=== PATIENT | female | born 1995 | race Caucasian/White ===

== ENCOUNTER 2018-05-22 20:18 | Emergency (ER) | payer MEDICAID ==
[2018-05-22] MEDS ORDERED: Ondansetron HCl/PF 4 MG/2 ML Vial ONE (20:45)
[2018-05-22 20:58] LABS: #Lymphocytes 1.9 thou/uL (1.20-3.40); #Monocytes 0.7 thou/uL (0.11-0.59); #Neutrophils 14.7 thou/uL (1.40-6.50); %Basophils 0.3 % (0.0-1.0); %Eosinophils 0.1 % (0.0-10.0); %Lymphocytes 10.7 % (21.0-51.0); %Monocytes 3.8 % (0.0-10.0); %Neutrophils 85.1 % (42.0-75.0); Hemoglobin 12.7 g/dL (12.0-16.0); Mean Corpuscular HGB CONC 33.5 g/dL (32.0-36.0); Mean Corpuscular Hemoglobin 29.1 pg (27.0-31.0); Mean Platelet Volume 7.2 fL (7.4-10.4); Platelet Count 449 thou/uL (130-400); RBC Distribution Width 13.1 % (11.5-14.5); Red Blood Cell (RBC) Count 4.37 mill/uL (4.20-5.40); White Blood Cell (WBC) Count 17.2 thou/uL (4.8-10.8)
[2018-05-22 21:20] LABS: ALT (SGPT) 8 U/L (8-55); AST (SGOT) 13 U/L (5-34); Albumin 4.4 g/dL (3.5-5.0); Alkaline Phosphatase 72 U/L (40-150); Anion Gap 17 mmol/L (10-20); BUN (Urea Nitrogen) 5 mg/dL (7.0-18.7); Bilirubin, Total 0.2 mg/dL (0.2-1.2); Calc. Creatinine Clearance 0 mL/min (70-130); Calcium 10.4 mg/dL (7.8-10.44); Carbon Dioxide 19 mmol/L (22-29); Chloride 105 mmol/L (98-107); Estimated GFR-MDRD Greater than 90; Globulin 4.3 g/dL (2.4-3.5); Glucose 95 mg/dL (70-105); Potassium 3.7 mmol/L (3.5-5.1); Protein, Total 8.7 g/dL (6.0-8.3); Sodium 137 mmol/L (136-145)
[2018-05-22] MEDS ORDERED: diphenhydrAMINE 50 MG/ML VIAL ONE (22:22)
[2018-05-22] MEDS ORDERED: Metoclopramide HCl 10 MG/2 ML VIAL ONE (22:22)
== END 2018-05-22 23:07 | disposition home or self-care (01) ==
LOC: ERS 20:18
DX: O21.0 Mild hyperemesis gravidarum (principal); Z3A.14 14 weeks gestation of pregnancy
CPT/HCPCS: 80053; 84702; 85025; 96361; 96374; 96375; J1200; J2405; J2765

== ENCOUNTER 2018-11-09 05:54 | Inpatient (IN) | payer OTHER ==
[~2018-11-09 05:54] MED LIST: Butorphanol Tartrate 1 MG/ML VIAL SLOW IVP PRN; Docusate 100 MG CAP PO PRN; HYDROcodone/Acetaminophen 5/325 mg Tablet PO PRN; Ibuprofen 800 MG TAB PO PRN; Lidocaine 1% (PF) 30 ML VIAL SC PRN; NS / Oxytocin 40 units/1000ml 1,000 ML IV PRN; NS w/ Oxytocin 10 units 500 ML IV SCH; Ondansetron PF 4 MG/2 ML Vial IVP PRN; Promethazine HCl 25 MG/ML VIAL IM PRN
[2018-11-09] MEDS: Lactated Ringer's 1,000 ML IV SCH ×3 (06:30→14:03)
[2018-11-09 06:32] LABS: Hemoglobin 11.1 g/dL (12.0-16.0); Mean Corpuscular HGB CONC 32.5 g/dL (32.0-36.0); Mean Corpuscular Hemoglobin 28.8 pg (27.0-31.0); Mean Corpuscular Volume 88.4 fL (78.0-98.0); Mean Platelet Volume 9.1 fL (7.4-10.4); Platelet Count 199 thou/uL (130-400); RBC Distribution Width 13.8 % (11.5-14.5); Red Blood Cell (RBC) Count 3.87 mill/uL (4.20-5.40); White Blood Cell (WBC) Count 7.2 thou/uL (4.8-10.8)
[2018-11-09 06:36] VITALS: BMI 32.7
[2018-11-09] MEDS ORDERED: Oxytocin 10 UNITS/ML VIAL ONE (06:58)
[2018-11-09] MEDS ORDERED: NS w/ Oxytocin 10 units 500 ML ONE (06:59)
[2018-11-09 07:09] LABS: HBSAg Index 0.21 S/CO (0-0.99); Hep B Surf Ag Non-Reactive S/CO (NonReactive)
[2018-11-09 07:10] LABS: Syphilis Antibody Nonreactive (Nonreactive); Syphilis Antibody Index 0.03 S/CO (<1.00 Non-Reactive)
[2018-11-09] MEDS ORDERED: Bupivacaine 0.25% HCL 30 ML VIAL ONE (08:19)
[2018-11-09] MEDS ORDERED: Fentanyl 4 mcg/Bup 0.1% Cadd 100 ML ONE ×2 (12:31→21:06)
[2018-11-09] MEDS ORDERED: Fentanyl 100 MCG/2 ML VIAL ONE (12:33)
[2018-11-09] MEDS ORDERED: Fentanyl 100 MCG/2 ML VIAL EPIDURAL ONE (12:50)
[2018-11-09] MEDS ORDERED: Naloxone HCl 0.4 mg/ml Vial IVP PRN ×2 (13:13)
[2018-11-09] MEDS ORDERED: ePHEDrine/0.9% NaCl/PF SYRINGE 50 mg/10 ml SLOW IVP PRN (13:13)
[2018-11-09] MEDS ORDERED: Lactated Ringer's 500 ML IV PRN (13:13)
[2018-11-09] MEDS ORDERED: Eucerin (Mineral Oil/Petrolatum,White) 30 gm Jar TOP PRN (13:13)
[2018-11-09] MEDS ORDERED: Ondansetron PF 4 MG/2 ML Vial IVP PRN (13:13)
[2018-11-09] MEDS ORDERED: Promethazine HCl 25 MG/ML VIAL IM PRN (13:13)
[2018-11-09] MEDS ORDERED: Acetaminophen 325 MG TAB PO PRN (13:13)
[2018-11-09] MEDS ORDERED: Fentanyl 4 mcg/Bupivacaine 0.1% Cassette 100 ML EPIDURAL SCH (13:15)
[2018-11-09] MEDS ORDERED: Communication Order-Pharmacy FS SCH (13:15)
[2018-11-09] MEDS: diphenhydrAMINE 50 MG/ML VIAL IVP PRN (14:26)
[2018-11-09] MEDS ORDERED: Acetaminophen 500 MG TAB PO PRN (20:07)
[2018-11-09] MEDS: Ampicillin 2 GM in Sodium Chloride 0.9% 100 ML IVPB SCH (20:16)
[2018-11-10] MEDS: Ampicillin 2 GM in Sodium Chloride 0.9% 100 ML IVPB SCH ×2 (00:57→09:04)
[2018-11-10] MEDS: diphenhydrAMINE 50 MG/ML VIAL IVP PRN (02:35)
[2018-11-10] MEDS ORDERED: Fentanyl 4 mcg/Bup 0.1% Cadd 100 ML ONE (03:06)
[2018-11-10] MEDS ORDERED: Lidocaine 1% (PF) 30 ML VIAL ONE ×2 (04:09→05:31)
[2018-11-10] MEDS ORDERED: NS / Oxytocin 40 units/1000ml 0 ML ONE (04:09)
[2018-11-10] MEDS ORDERED: Misoprostol 200 MCG TAB ONE (04:10)
[2018-11-10] MEDS ORDERED: NS / Oxytocin 40 units/1000ml 1,000 ML ONE ×2 (04:10→05:31)
[2018-11-10] MEDS ORDERED: Methylergonovine 0.2 MG/ML VIAL ONE (04:10)
[2018-11-10] MEDS ORDERED: Carboprost 250 MCG/ML AMP ONE (04:10)
[2018-11-10] MEDS ORDERED: HYDROcodone/Acetaminophen 5/325 mg Tablet PO PRN ×2 (05:30)
[2018-11-10] MEDS ORDERED: Lanolin Ointment 7 GM TUBE TOP PRN (05:30)
[2018-11-10] MEDS ORDERED: Milk Of Magnesia 30 ML UDCUP PO PRN (05:30)
[2018-11-10] MEDS ORDERED: NS / Oxytocin 40 units/1000ml 1,000 ML IV SCH (05:30)
[2018-11-10] MEDS ORDERED: Benzocaine/Menthol 20-0.5% 60 ML CAN TOP PRN (05:30)
[2018-11-10] MEDS ORDERED: Bisacodyl 10 MG SUPP PR PRN (05:30)
[2018-11-10] MEDS ORDERED: Adacel (T-DAP) 0.5 ML SYRINGE IM ONE (05:30)
[2018-11-10] MEDS ORDERED: Ondansetron PF 4 MG/2 ML Vial IVP PRN (05:30)
[2018-11-10] MEDS: Ibuprofen 800 MG TAB PO SCH ×3 (06:36→21:27)
[2018-11-10] MEDS: Lactated Ringer's 1,000 ML IV SCH (09:03)
[2018-11-10] MEDS: Ferrous Sulfate 325 MG TAB PO SCH ×2 (09:37→13:59)
[2018-11-10] MEDS: Prenatal Vitamin 1 TAB PO SCH (09:39)
[2018-11-10] MEDS: Docusate Calcium (SURFAK) 240 MG CAP PO SCH ×2 (09:39→21:27)
[2018-11-11] MEDS: Ibuprofen 800 MG TAB PO SCH ×3 (05:47→22:00)
[2018-11-11] MEDS: Ferrous Sulfate 325 MG TAB PO SCH ×2 (07:35→15:26)
[2018-11-11] MEDS: Prenatal Vitamin 1 TAB PO SCH (09:45)
[2018-11-11] MEDS: Docusate Calcium (SURFAK) 240 MG CAP PO SCH ×2 (09:45→22:00)
[2018-11-12] MEDS: Ibuprofen 800 MG TAB PO SCH (06:11)
--- NOTE | 2018-11-12 07:51 | OP ---
DATE OF PROCEDURE: 11/10/2018 PREOPERATIVE DIAGNOSES: 1. A 22-year-old G1 at 39 weeks plus with induction of labor. 2. GBS negative. 3. Anemia of . POSTOPERATIVE DIAGNOSES: 1. A 22-year-old G1 at 39 weeks plus with induction of labor. 2. GBS negative. 3. Anemia of . 4. Live-born male infant with Apgars of 6 and 9 at 1 and 5 minutes respectively, weighing 7 pounds 0 ounces. 5. Fever prior to pushing. IV antibiotics initiated until completion of delivery. PROCEDURES PERFORMED: 1. Spontaneous vaginal delivery. 2. Repair of a first-degree midline laceration. ANESTHESIA: Epidural. ESTIMATED BLOOD LOSS: 50 mL. QUANTITATIVE BLOOD LOSS: 32 mL. CLINICAL HISTORY: This patient is a 22-year-old female G1, who desired an induction of labor at 39 weeks. She was scheduled for Pitocin given her initial exam was 1 cm, 60% effaced, and -3 station. She started on Pitocin after a category one tracing and an amniotomy was performed for clear fluid when she had a contraction pattern. The patient continued to progress in cervical dilation, however, she was not moving down station until after she had her epidural. She then began to descend into the pelvis appropriately and when she reached complete cervical dilation and +2 station, she began to push. DESCRIPTION OF PROCEDURE: With good maternal effort, the patient was able to bring the vertex to position. She delivered the head followed by the anterior shoulder followed by the posterior shoulder and the remainder of the 's body. The cord was doubly clamped and cut. The infant cried spontaneously. The was stimulated and placed on the maternal abdomen for the attendance of a nursing staff. The cord blood was obtained and then the placenta was delivered spontaneously intact with a three-vessel cord. Exploration of the introitus, vagina, and cervix noted a midline first-degree laceration which was repaired in a running locking fashion with excellent hemostasis afterwards. The patient tolerated procedure well and all needle, sponge, lap, and instrument counts were correct x2. The patient was able to recover in labor and delivery in satisfactory condition with her infant again which was a live-born male weighing 7 pounds even with Apgars of 6 and 9 at 1 and 5 minutes respectively. There were no other issues surrounding this delivery. Job ID: [id number]
[2018-11-12 08:41] VITALS: BP 112/72; TEMP 97.6
[2018-11-12] MEDS: Ferrous Sulfate 325 MG TAB PO SCH (09:20)
[2018-11-12] MEDS: Docusate Calcium (SURFAK) 240 MG CAP PO SCH (09:21)
[2018-11-12] MEDS: Prenatal Vitamin 1 TAB PO SCH (09:21)
== END 2018-11-12 11:50 | disposition home or self-care (01) | DRG 806 ==
LOC: L&D 05:54 → 3SW 11-10 08:08
PROVIDERS: ADMIT Obstetrics & Gynecology; ATTEND Obstetrics & Gynecology
PROC: 10E0XZZ Delivery of Products of Conception, External Approach (ICD-10-PCS; principal; 2018-11-10)
PROC: 0HQ9XZZ Repair Perineum Skin, External Approach (ICD-10-PCS; 2018-11-10)
DX: O99.02 Anemia complicating childbirth (principal); O75.2 Pyrexia during labor, not elsewhere classified; Z37.0 Single live birth; D64.9 Anemia, unspecified; Z3A.39 39 weeks gestation of pregnancy; O70.0 First degree perineal laceration during delivery
CPT/HCPCS: 36415; 51702; 85027; 86780; 86850; 86900; 86901; 87340; J0290; J1200; J2001; J2210; J2405; J2550; J2590; J3010; J3490; J7050; S0020

== ENCOUNTER 2019-02-17 08:39 | Outpatient (CLI) | payer BC ==
--- NOTE | 2019-02-17 09:26 | ULT ---
ULTRASOUND ABDOMEN: Date: 02/17/19 HISTORY: Epigastric pain. FINDINGS: The liver demonstrates increased echogenicity consistent with fatty infiltration. Multiple mobile sha dowing gallstones are seen without gallbladder wall thickening or pericholecystic fluid. The common d uct measures 4.0 mm in diameter. The spleen measures 10.0 cm in length and is normal. The right kidney measures 11.6 cm in length and the left kidney measures 10.8 cm in length. No hydronephrosis or focal mass is seen. The visualized p ortions of the pancreas are unremarkable. IMPRESSION: 1. Fatty liver. 2. Cholelithiasis. POS: [facility]
== END 2019-02-17 08:40 | disposition home or self-care (01) ==
LOC: ULT 08:39
PROVIDERS: ATTEND Nurse Practitioner
DX: R10.13 Epigastric pain (principal); K76.0 Fatty (change of) liver, not elsewhere classified; K80.20 Calculus of gallbladder without cholecystitis without obstruction
CPT/HCPCS: 76700